=== PATIENT | female | born 1940 | race Caucasian/White ===

== ENCOUNTER 2016-05-16 09:31 | Outpatient (CLI) | payer MEDICARE, OTHER ==
--- NOTE | 2016-05-16 16:28 | CT ---
CT OF CHEST CT ABDOMEN AND PELVIS 05/16/16 HISTORY: Metastatic disease. No prior comparison imaging. Reference is made to lumbar spine MRI which revealed incidental note of right adrenal lesion. FINDINGS: There are scattered nonspecific nodular densities of the pulmonary parenchyma many of which demonstr ate ground glass appearance. There is a soft tissue mass that emanates from the right suprahilar reg ion, encasing the right main stem bronchus which demonstrates an ill-defined morphology, although me asures approximately 3.8 cm in transverse dimension x 1.7 cm in AP dimension. There is an additional nodular component at its inferior aspect anterior to the right main stem bronchus measuring 2.7 x 1 .9 cm. Subcarinal adenopathy present. No pleural effusion. Incidental note of soft tissues nodules involving the right lateral thoracic body wall, measuring 1 cm, and within the anterior and lateral right breast just lateral to the subareolar region measuring 1 cm. A punctate nodule of the medial left breast measures 6 mm. Presternal soft tissue nodule abhishek uring 8 mm overlies the xiphoid process just to the left of midline. There are multiple additional p unctate soft tissue nodules throughout the body wall of the abdomen and pelvis. There is a large het erogeneous mass occupying the right adrenal region that measures 4.2 x 4.5 cm in axial dimensions. A djacent retrocrural adenopathy to the right of midline is present. There is moderate right hydroneph rosis with a focal hyperdense rounded soft tissue mass abutting the proximal right urinary collectin g system at the level of the UP junction. This could relate to metastatic lymph node exerting mass e ffect upon the proximal ureter versus superimposition of the urothelial lesion. Finding measures sli ghtly greater than 2 cm in diameter. Scattered granulomatous calcifications are present. Small hypod ensity emanates from the medial upper pole left kidney, too small to further characterize. There is colonic diverticulosis. Scattered osseous degenerative changes are present. IMPRESSION: 1. 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 There are several scattered ground glass nodular opacities through out the pulmonary parenchyma which may be on the basis of metastatic nodules. 2. Large right adrenal metastatic lesion and adjacent adenopathy. 3. Soft tissue mass abutting the UP junction of the right kidney with moderate right hydronephr osis suspicious for metastatic lesion. 4. Multiple body wall soft tissue nodules which may relate to metastatic deposition. POS: [facility]
== END 2016-05-16 09:32 | disposition home or self-care (01) ==
LOC: NAV CT 09:31
PROVIDERS: ATTEND Internal Medicine
DX: C79.9 Secondary malignant neoplasm of unspecified site (principal); Z79.899 Other long term (current) drug therapy; C79.71 Secondary malignant neoplasm of right adrenal gland
CPT/HCPCS: 36415; 71260; 74177; 82565

== ENCOUNTER 2016-08-06 15:00 | Outpatient (CLI) | payer MEDICARE, OTHER ==
[2016-08-06 15:18] LABS: Bilirubin Negative (Negative); Blood, Urine Moderate (Negative); Glucose, Urine (Dipstick) Negative (Negative); Leukocyte Trace (Negative); Nitrite Negative (Negative); Protein, Urine (Dipstick) 100 mg/dL (Neg-Trace)
[2016-08-06 15:30] LABS: Clarity Cloudy (Clear)
[2016-08-06 15:31] LABS: Bacteria/HPF 3+ HPF (None Seen); Specific Gravity, Urine 1.036 (1.002-1.036); Squamous Epithelial 21-50 HPF (0-3)
== END 2016-08-06 15:01 | disposition home or self-care (01) ==
LOC: NAVSJIPCSP 15:00
PROVIDERS: ATTEND Internal Medicine
DX: N30.00 Acute cystitis without hematuria (principal)
CPT/HCPCS: 81003; 81015; 87086

== ENCOUNTER 2016-09-15 13:33 | Outpatient (CLI) | payer MEDICARE, OTHER ==
--- NOTE | 2016-09-15 16:01 | RAD ---
RIGHT HIP 2 VIEWS: HISTORY: The patient felt a pull and a pop in the right hip. COMPARISON: None. FINDINGS/IMPRESSION: Contour of the femoral head is maintained. Joint space is preserved. No fracture. There is mild b one demineralization. No fracture. No significant loss of joint space height. POS: [facility]
== END 2016-09-15 13:34 | disposition home or self-care (01) ==
LOC: NAV RAD 13:33
PROVIDERS: ATTEND Internal Medicine
DX: R52 Pain, unspecified (principal); M81.0 Age-related osteoporosis without current pathological fracture

== ENCOUNTER 2016-10-10 11:54 | Emergency (ER) | payer MEDICARE, OTHER ==
[2016-10-10] MEDS ORDERED: Cephalexin 500 MG CAP ONE (12:14)
== END 2016-10-10 12:33 | disposition home or self-care (01) ==
LOC: NAV ERS 11:54
DX: S60.466A Insect bite (nonvenomous) of right little finger, initial encounter (principal); L08.9 Local infection of the skin and subcutaneous tissue, unspecified; E03.9 Hypothyroidism, unspecified; I10 Essential (primary) hypertension; F17.210 Nicotine dependence, cigarettes, uncomplicated; Z79.899 Other long term (current) drug therapy; W57.XXXA Bitten or stung by nonvenomous insect and other nonvenomous arthropods, initial encounter
CPT/HCPCS: 99282

== ENCOUNTER 2017-02-19 11:07 | Emergency (ER) | payer MEDICARE, OTHER ==
[2017-02-19] MEDS ORDERED: Bisacodyl 5 MG TAB ONE (14:23)
[2017-02-19] MEDS ORDERED: HYDROcodone/Acetaminophen 5/325 mg Tablet ONE (16:29)
[2017-02-19] MEDS ORDERED: cefTRIAXone\\ROCEPHIN 1 GM VIAL ONE (16:30)
[2017-02-19] MEDS ORDERED: Lidocaine 1% 20 ML MDV ONE (16:31)
[2017-02-19] MEDS ORDERED: Ondansetron ODT 4 MG TAB ONE (16:48)
== END 2017-02-19 18:39 | disposition home or self-care (01) ==
LOC: NAV ERS 11:07
DX: K59.00 Constipation, unspecified (principal); C34.90 Malignant neoplasm of unspecified part of unspecified bronchus or lung; E03.9 Hypothyroidism, unspecified; I10 Essential (primary) hypertension; F17.210 Nicotine dependence, cigarettes, uncomplicated; Z79.899 Other long term (current) drug therapy; Z92.21 Personal history of antineoplastic chemotherapy
CPT/HCPCS: 96372; J0696; J2001; Q0162